=== PATIENT | female | born 1955 | race American Indian/Alaskan Native ===

== ENCOUNTER 2019-02-20 07:45 | Inpatient (IN) | payer MEDICARE, OTHER ==
[2019-02-20] MEDS ORDERED: Ondansetron 4 MG/2 ML SDV IVPUSH ONE (08:18)
[2019-02-20] MEDS ORDERED: Sodium Chloride 0.9% 10 ML Syringe FLUSH PRN (08:18)
[2019-02-20] MEDS ORDERED: HYDROmorphone 0.5 MG/0.5 ML Syringe IVPUSH ONE (08:19)
--- NOTE | 2019-02-20 09:40 | CR ---
Chest: Portable view of the chest was obtained. Comparison: No prior chest imaging. Heart size and mediastinum are within normal limits for portable technique. Lungs are clear with no acute parenchymal change. Bony structures are grossly intact. Impression: 1. Nothing acute is appreciated on portable chest x-ray. Diagnostic code #1
--- NOTE | 2019-02-20 10:07 | EDM.PDOC ---
ED HPI GENERAL MEDICAL PROBLEM - General Chief Complaint: Abdominal Pain Stated Complaint: UPPER ABDOMINAL PAIN/WEAKNESS Time Seen by Provider: 02/20/19 08:14 Source of Information: Reports: Patient History Limitations: Reports: No Limitations - History of Present Illness INITIAL COMMENTS - FREE TEXT/NARRATIVE: The patient presents for nausea, chest and epigastric pain and generalized weakness. This all started this morning. She ate beef stew last night and she was feeling fine for bed. She has a history of pancreatitis. She has no shortness of breath. She has no fever or chills. She did not vomit. She has no diarrhea or dysuria. She still has her gallbladder and appendix. Onset: Gradual Duration: Hour(s): Location: Reports: Chest, Abdomen Quality: Reports: Sharp Severity: Moderate Improves with: Reports: None Worsens with: Reports: None Associated Symptoms: Reports: Chest Pain, Nausea/Vomiting, Weakness. Denies: Cough, Fever/Chills, Headaches, Shortness of Breath Abdomen Pain Score (Numeric/FACES): 2 - Related Data Allergies Allergy/AdvReac Type Severity Reaction Status Date / Time No Known Allergies Allergy Verified 02/20/19 08:10 Home Meds: Home Meds Cephalexin [Keflex] 500 mg PO QID 02/20/19 [History] Cholecalciferol (Vitamin D3) [Vitamin D3] 0 unit PO DAILY 02/20/19 [History] Gabapentin [Neurontin] 600 mg PO TID 02/20/19 [History] Htn Med 0 mg PO DAILY 02/20/19 [History] Insulin 70/30 85 unit SQ ACDINNER 02/20/19 [History] Insulin 70/30 105 unit SQ ACBREAKFAST 02/20/19 [History] Magnesium Oxide [Magnesium] 0 mg PO DAILY 02/20/19 [History] Kiefer-3 Acid Ethyl Esters [Lovaza] 1,000 mg PO BID 02/20/19 [History] Terbinafine [LamISIL] 250 mg PO DAILY 02/20/19 [History] predniSONE [Prednisone] 30 mg PO DAILY 02/20/19 [History] Past Medical History HEENT History: Reports: Cataract, Impaired Vision, Other (See Below) Other HEENT History: 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 Cardiovascular History: Reports: High Cholesterol, Hypertension Gastrointestinal History: Reports: Other (See Below) Other Gastrointestinal History: pancreatitis. 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 Denies: Fever, Chills HEENT: Reports: No Symptoms Respiratory: Reports: No Symptoms Cardiovascular: Reports: Chest Pain Endocrine: Reports: No Symptoms GI/Abdominal: Reports: Abdominal Pain, Nausea. Denies: Diarrhea, Vomiting : Reports: No Symptoms Musculoskeletal: Reports: No Symptoms Skin: Reports: No Symptoms Neurological: Reports: Weakness (Generalized). Denies: Headache ED EXAM, GI/ABD - Physical Exam Exam: See Below Exam Limited By: No Limitations General Appearance: Alert, No Apparent Distress Ears: Normal External Exam Nose: Normal Inspection Head: Atraumatic, Normocephalic Neck: Normal Inspection Respiratory/Chest: No Respiratory Distress, Lungs Clear, Normal Breath Sounds Cardiovascular: Regular Rate, Rhythm, No Edema, No Murmur GI/Abdominal Exam: Soft, No Organomegaly, No Mass, Tender (Moderate epigastric and RUQ abdominal pain) Back Exam: Normal Inspection Extremities: Normal Inspection Neurological: Alert, Oriented, No Motor/Sensory Deficits EKG INTERPRETATION EKG Date: 02/20/19 Time: 07:57 Rhythm: NSR Rate (Beats/Min): 83 Course - Vital Signs Last Recorded V/S: Last Vital Signs Temp 97.2 F 02/20/19 07:50 Pulse 88 02/20/19 09:32 Resp 18 02/20/19 09:32 BP 154/78 H 02/20/19 09:32 Pulse Ox 99 02/20/19 09:32 - Orders/Labs/Meds Orders: Active Orders 24 hr Category Date Time Status Cardiac Monitoring [RC] . DIRECTED Care 02/20/19 08:18 Active EKG Documentation Completion [RC] STAT Care 02/20/19 08:19 Active Peripheral IV Care [RC] . DIRECTED Care 02/20/19 08:19 Active Abdomen Ltd [US] Stat Exams 02/20/19 08:18 Taken UA W/MICROSCOPIC [URIN] Stat Lab 02/20/19 08:18 Ordered Potassium Chloride [KCl 10 MEQ in Water 100 ML] 10 meq Med 02/20/19 10:16 Active Premix Bag 1 bag IV ONETIME Sodium Chloride 0.9% [Saline Flush] Med 02/20/19 08:18 Active 10 ml FLUSH ASDIRECTED PRN ED Antiemetic Medication Reflex [OM.PC] Stat Oth 02/20/19 08:18 Ordered Peripheral IV Insertion Adult [OM.PC] Stat Oth 02/20/19 08:18 Ordered Medication Orders Potassium Chloride 10 meq/ (Premix) 100 mls @ 100 mls/hr IV ONETIME ONE Stop: 02/20/19 11:15 Sodium Chloride (Saline Flush) 10 ml FLUSH ASDIRECTED PRN PRN Reason: Keep Vein Open Last Admin: 02/20/19 08:05 Dose: 10 ml Labs: Laboratory Tests 02/20/19 02/20/19 Range/Units 08:05 08:05 WBC 6.70 (3.98-10.04) K/mm3 RBC 3.60 L (3.98-5.22) M/mm3 Hgb 16.0 H (11.2-15.7) gm/dl Hct 35.0 (34.1-44.9) % MCV 97.2 H (79.4-94.8) fl MCH 44.4 H (25.6-32.2) pg MCHC 45.7 H (32.2-35.5) g/dl RDW Std Deviation 49.5 H (36.4-46.3) fL Plt Count 229 (182-369) K/mm3 MPV 10.6 (9.4-12.3) fl Neut % (Auto) 54.0 (34.0-71.1) % Lymph % (Auto) 10.5 L (19.3-51.7) % [place] % (Auto) 33.9 H (4.7-12.5) % Eos % (Auto) 1.2 (0.7-5.8) Baso % (Auto) 0.4 (0.1-1.2) % Neut # (Auto) 3.60 (1.56-6.13) K/mm3 Lymph # (Auto) 0.70 L (1.18-3.74) K/mm3 [place] # (Auto) 2.26 H (0.24-0.36) K/mm3 Eos # (Auto) 0.08 (0.04-0.36) K/mm3 Baso # (Auto) 0.03 (0.01-0.08) K/mm3 Manual Slide Review Abnormal smear Sodium 123 L (136-145) mEq/L Potassium 2.7 L (3.5-5.1) mEq/L Chloride 91 L (98-107) mEq/L Carbon Dioxide 24 (21-32) mEq/L Anion Gap 10.7 (5-15) BUN TNP Creatinine TNP Estimated GFR (MDRD) TNP BUN/Creatinine Ratio TNP Glucose 439 H (80-115) mg/dL Calcium TNP Total Bilirubin TNP AST TNP ALT TNP Alkaline Phosphatase TNP Troponin I < 0.017 (0.00-0.056) ng/mL Total Protein TNP Albumin TNP Globulin TNP Albumin/Globulin Ratio TNP Lipase 5560 H (73-393) U/L Ethyl Alcohol TNP Meds: Medications Generic Name Dose Route Start Last Admin Trade Name Freq PRN Reason Stop Dose Admin Potassium Chloride 10 meq/ 100 mls @ 100 mls/hr 02/20/19 10:16 Premix IV 02/20/19 11:15 ONETIME ONE Sodium Chloride 10 ml 02/20/19 08:18 02/20/19 08:05 Saline Flush FLUSH 10 ml ASDIRECTED PRN Administration Keep Vein Open Discontinued Medications Generic Name Dose Route Start Last Admin Trade Name Freq PRN Reason Stop Dose Admin Hydromorphone HCl 0.5 mg 02/20/19 08:19 02/20/19 08:42 Dilaudid IVPUSH 02/20/19 08:20 0.5 mg ONETIME ONE Administration Ondansetron HCl 4 mg 02/20/19 08:18 02/20/19 08:40 Zofran IVPUSH 02/20/19 08:19 4 mg ONETIME ONE Administration - Re-Assessments/Exams Free Text/Narrative Re-Assessment/Exam: 02/20/19 10:02 I ordered an IV saline lock, dilaudid 0.5mg IV, zofran 4mg IV, labs, EKG, CXR and an US of her gallbladder. Her WBC and platelets were normal Her Hgb was elevated at 16. Her Na is low at 123. Her K is low at 27. I have ordered IV K. Her glucose is 439. Her troponin is negative. Her lipase is 5560. I am waiting for her US. 02/20/19 10:23 Her EKG shows a NSR with no acute changes. Her CXR looks good. Her US shows small gallbladder polyps. Largest polyp measures 4.6mm. Follow-up recommended in 6 months to make sure findings are stable. Echogenic liver most likely due to fatty infiltration. No additional abnormality is appreciated on right upper quadrant abdominal US exam. I have ordered her fluids and the K. I feel she needs to be admitted. I called Dr Gomez and he agreed to the admission. Departure - Departure Time of Disposition: 10:25 Disposition: Admitted As Inpatient 68 Condition: Poor Clinical Impression: Hypokalemia, Hyponatremia Pancreatitis Qualifiers: Chronicity: acute Pancreatitis type: other Acute pancreatitis complication: no infection or necrosis Qualified Code(s): K85.80 - Other acute pancreatitis without necrosis or infection - Discharge Information Referrals: PCP,Not In Area [Primary Care Provider] - Forms: ED Department Discharge - My Orders Last 24 Hours: My Active Orders 02/20/19 08:18 Cardiac Monitoring [RC] . DIRECTED Abdomen Ltd [US] Stat UA W/MICROSCOPIC [URIN] Stat Sodium Chloride 0.9% [Saline Flush] 10 ml FLUSH ASDIRECTED PRN ED Antiemetic Medication Reflex [OM.PC] Stat Peripheral IV Insertion Adult [OM.PC] Stat 02/20/19 08:19 EKG Documentation Completion [RC] STAT Peripheral IV Care [RC] . DIRECTED 02/20/19 10:16 Potassium Chloride [KCl 10 MEQ in Water 100 ML] 10 meq Premix Bag 1 bag IV ONETIME - Assessment/Plan Last 24 Hours: My Active Orders 02/20/19 08:18 Cardiac Monitoring [RC] . DIRECTED Abdomen Ltd [US] Stat UA W/MICROSCOPIC [URIN] Stat Sodium Chloride 0.9% [Saline Flush] 10 ml FLUSH ASDIRECTED PRN ED Antiemetic Medication Reflex [OM.PC] Stat Peripheral IV Insertion Adult [OM.PC] Stat 02/20/19 08:19 EKG Documentation Completion [RC] STAT Peripheral IV Care [RC] . DIRECTED 02/20/19 10:16 Potassium Chloride [KCl 10 MEQ in Water 100 ML] 10 meq Premix Bag 1 bag IV ONETIME
[2019-02-20] MEDS ORDERED: Potassium Chloride 10 MEQ in Premix Bag 1 BAG IV ONE (10:16)
[2019-02-20] MEDS ORDERED: Sodium Chloride 0.9% 500 ML IV ONE (10:22)
--- NOTE | 2019-02-20 10:32 | US ---
Limited abdominal ultrasound: Multiple real-time images of the upper right abdomen were obtained. Pancreas shows no discrete abnormality. Liver is echogenic most likely due to fatty infiltration. No focal abnormality is seen within the liver. Gallbladder contains no shadowing gallstones. Small polyps are seen within the gallbladder. Largest polyp measures 4.6 mm and second largest measures 4.1 mm. No biliary duct dilatation or gallbladder wall thickening is seen. Right kidney shows no hydronephrosis or mass. Right kidney length is 10.8 cm. Inferior vena cava is patent. Portal vein shows normal hepatopedal flow. Impression: 1. Small gallbladder polyps. Largest polyp measures 4.6 mm. Follow-up recommended in 6 months to make sure findings are stable. 2. Echogenic liver most likely due to fatty infiltration. 3. No additional abnormality is appreciated on right upper quadrant abdominal ultrasound exam. Diagnostic code #3
[2019-02-20] MEDS ORDERED: Pneumococcal Polyvalent-23 Vaccine 0.5 ML SDV IM ONE (12:21)
[2019-02-20] MEDS ORDERED: Lactated Ringers 1,000 ML IV ONE (12:26)
[2019-02-20] MEDS ORDERED: FLU Vacc QS2019-20(6MOS+)/PF 60 MCG/0.5 ML SYRINGE IM ONE (12:30)
[2019-02-20] MEDS: Lactated Ringers 1,000 ML IV SCH ×2 (12:39→18:30)
[2019-02-20] MEDS: Potassium Chloride 10 MEQ in Premix Bag 1 BAG IV SCH ×4 (12:40→16:09)
[2019-02-20] MEDS: HYDROmorphone 0.5 MG/0.5 ML Syringe IVPUSH PRN ×2 (12:41→17:25)
[2019-02-20] MEDS ORDERED: Insulin Regular, Human 100 Units/ML 3 ML Vial SUBCUT ONE (13:47)
[2019-02-20] MEDS ORDERED: Insulin Lispro 100 Units/ML 3 ML Vial SUBCUT ONE ×2 (13:59→23:30)
[2019-02-20] MEDS ORDERED: Magnesium Sulfate/Water 4 GM in Premix Bag 1 BAG IV ONE (14:00)
[2019-02-20] MEDS: Insulin Lispro 100 Units/ML 3 ML Vial SUBCUT SCH ×3 (14:05→21:57)
[2019-02-20] MEDS ORDERED: Ondansetron 4 MG/2 ML SDV IVPUSH PRN (17:19)
--- NOTE | 2019-02-20 17:20 | PCM.HP.2 ---
H&P History of Present Illness - General Date of Service: 02/20/19 Admit Problem/Dx: Admission Diagnosis/Problem Admission Diagnosis/Problem Pancreatitis - History of Present Illness Initial Comments - Free Text/Narative: 63-year-old female, poor historian, insulin-dependent diabetes with history of 2 prior episodes of pancreatitis and severe hypertriglyceridemia presents to the emergency room with nausea, chest pain, epigastric pain, and generalized weakness. She states that it all started this morning. Last night she ate beef stew and fried bread. Patient denied any fever, chills, recent weight loss. She had cut her thumb 2 weeks ago was started on Keflex yesterday. Patient also is on terbinafine since October for onychomycosis. It appears patient's first episode of pancreatitis followed starting terbinafine. [place] and states that 2 times last year she was flown out to [place], [place] for plasmapheresis secondary to triglycerides in the . At that time patient had symptoms of nausea and vomiting but she does not think she was diagnosed with pancreatitis. patient denies any drinking of alcohol. 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 Emergent to see department labs were excessively lipemic therefore making many results unattainable or unpredictable.: CBC, RBC, hemoglobin and hematocrit results were obtained by diluting the specimen. WBC 6.7, hemoglobin 16.0, platelet 229, sodium 123, potassium 2.6, chloride 91, carbon dioxide 24, glucose 439, troponin I less than 0.017, lipase 5560. The remainder of the CMP results were unobtainable because of lipidemia. No renal function or liver function was obtained. Repeat when she got to the floor after 500 mL saline bolus and 10 mEq KCl in the emergency room showed: Sodium 128, potassium 2.6, anion gap of 12.6, glucose 376, magnesium 1.4, triglycerides 7734. Urine WBC 5-10 with 0-5 epithelial cells. Urine bacteria few. Chest x-ray showed no acute changes. Limited abdominal ultrasound Impression: 1. Small gallbladder polyps. The largest polyp measures 4.6 mm. Follow-up recommended in 6 months to make sure findings are stable. 2. Echogenic liver most likely due to fatty infiltration. 3. No additional abnormality is appreciated on the right upper quadrant abdominal ultrasound exam. Abdomen Pain Score (Numeric/FACES): 2 - Related Data Allergies/Adverse Reactions: Allergies Allergy/AdvReac Type Severity Reaction Status Date / Time No Known Allergies Allergy Verified 02/20/19 08:10 Home Medications: Home Meds Cephalexin [Keflex] 500 mg PO QID 02/20/19 [History] Cholecalciferol (Vitamin D3) [Vitamin D3] 0 unit PO DAILY 02/20/19 [History] Gabapentin [Neurontin] 600 mg PO TID 02/20/19 [History] Htn Med 0 mg PO DAILY 02/20/19 [History] Insulin 70/30 85 unit SQ ACDINNER 02/20/19 [History] Insulin 70/30 105 unit SQ ACBREAKFAST 02/20/19 [History] Magnesium Oxide [Magnesium] 0 mg PO DAILY 02/20/19 [History] Kulm-3 Acid Ethyl Esters [Lovaza] 1,000 mg PO BID 02/20/19 [History] Terbinafine [LamISIL] 250 mg PO DAILY 02/20/19 [History] predniSONE [Prednisone] 30 mg PO DAILY 02/20/19 [History] Past Medical History HEENT History: Reports: Cataract, Impaired Vision, Other (See Below) Other HEENT History: 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 Cardiovascular History: Reports: High Cholesterol, Hypertension Gastrointestinal History: Reports: Other (See Below) Other Gastrointestinal History: pancreatitis. 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 Exam - Exam Exam: See Below - Vital Signs Vital Signs: Last Vital Signs Temp 98.4 F 02/20/19 16:00 Pulse 88 02/20/19 09:32 Resp 15 02/20/19 16:00 BP 151/72 H 02/20/19 16:00 Pulse Ox 93 L 02/20/19 16:00 Weight: 153 lb 1.6 oz - Exam Quality Assessment: No: Supplemental Oxygen General: Alert, Oriented, 4 HEENT: Conjunctiva Clear, Hearing Intact, Mucosa Moist & [place] Neck: Supple, Trachea Midline, 2 Lungs: Clear to Auscultation, Normal Respiratory Effort Cardiovascular: Regular Rate, Regular Rhythm GI/Abdominal Exam: Normal Bowel Sounds, Soft, Non-Tender, No Organomegaly, No Distention, No Abnormal Bruit, No Mass Back Exam: Normal Inspection, Full Range of Motion, NT Extremities: Normal Inspection, Normal Range of Motion, Non-Tender, No Pedal Edema, Normal Capillary Refill Skin: Warm, Dry, Intact Neurological: Cranial Nerves Intact Neuro Extensive - Mental Status: Alert, Oriented x3, Normal Mood/Affect, Normal Cognition Neuro Extensive - Motor, Sensory, Reflexes: CN II-XII Intact Psychiatric: Alert, Normal Affect, Normal Mood - Patient Data Lab Results Last 24 hrs: Laboratory Results - last 24 hr 02/20/19 02/20/19 02/20/19 Range/Units 08:05 08:05 12:26 WBC 6.70 (3.98-10.04) K/mm3 RBC 3.60 L (3.98-5.22) M/mm3 Hgb 16.0 H (11.2-15.7) gm/dl Hct 35.0 (34.1-44.9) % MCV 97.2 H (79.4-94.8) fl MCH 44.4 H (25.6-32.2) pg MCHC 45.7 H (32.2-35.5) g/dl RDW Std Deviation 49.5 H (36.4-46.3) fL Plt Count 229 (182-369) K/mm3 MPV 10.6 (9.4-12.3) fl Neut % (Auto) 54.0 (34.0-71.1) % Lymph % (Auto) 10.5 L (19.3-51.7) % [place] % (Auto) 33.9 H (4.7-12.5) % Eos % (Auto) 1.2 (0.7-5.8) Baso % (Auto) 0.4 (0.1-1.2) % Neut # (Auto) 3.60 (1.56-6.13) K/mm3 Lymph # (Auto) 0.70 L (1.18-3.74) K/mm3 [place] # (Auto) 2.26 H (0.24-0.36) K/mm3 Eos # (Auto) 0.08 (0.04-0.36) K/mm3 Baso # (Auto) 0.03 (0.01-0.08) K/mm3 Manual Slide Review Abnormal smear Sodium 123 L 128 L (136-145) mEq/L Potassium 2.7 L 2.6 L (3.5-5.1) mEq/L Chloride 91 L 94 L (98-107) mEq/L Carbon Dioxide 24 24 (21-32) mEq/L Anion Gap 10.7 12.6 (5-15) BUN TNP TNP Creatinine TNP TNP Est Cr Clr Drug Dosing TNP Estimated GFR (MDRD) TNP TNP BUN/Creatinine Ratio TNP TNP Glucose 439 H 376 H (80-115) mg/dL POC Glucose (80-115) mg/dL Calcium TNP TNP Magnesium 1.4 L (1.8-2.4) mg/dl Total Bilirubin TNP TNP AST TNP TNP ALT TNP TNP Alkaline Phosphatase TNP TNP Troponin I < 0.017 (0.00-0.056) ng/mL Total Protein TNP TNP Albumin TNP TNP Globulin TNP TNP Albumin/Globulin Ratio TNP TNP Triglycerides 7334 H (<150) mg/dL Cholesterol TNP LDL Cholesterol Direct TNP HDL Cholesterol TNP Lipase 5560 H (73-393) U/L Urine Color (Yellow) Urine Appearance (Clear) Urine pH (5.0-8.0) Ur Specific [place] (1.005-1.030) Urine Protein (Negative) Urine Glucose (UA) (Negative) Urine Ketones (Negative) Urine Occult Blood (Negative) Urine Nitrite (Negative) Urine Bilirubin (Negative) Urine Urobilinogen (0.2-1.0) Ur Leukocyte Esterase (Negative) Urine RBC (0-5) /hpf Urine WBC (0-5) /hpf Ur Squamous Epith Cells (0-5) /hpf Urine Bacteria (FEW) /hpf Urine Mucus (FEW) /hpf Ethyl Alcohol TNP 02/20/19 02/20/19 Range/Units 14:30 16:47 WBC (3.98-10.04) K/mm3 RBC (3.98-5.22) M/mm3 Hgb (11.2-15.7) gm/dl Hct (34.1-44.9) % MCV (79.4-94.8) fl MCH (25.6-32.2) pg MCHC (32.2-35.5) g/dl RDW Std Deviation (36.4-46.3) fL Plt Count (182-369) K/mm3 MPV (9.4-12.3) fl Neut % (Auto) (34.0-71.1) % Lymph % (Auto) (19.3-51.7) % [place] % (Auto) (4.7-12.5) % Eos % (Auto) (0.7-5.8) Baso % (Auto) (0.1-1.2) % Neut # (Auto) (1.56-6.13) K/mm3 Lymph # (Auto) (1.18-3.74) K/mm3 [place] # (Auto) (0.24-0.36) K/mm3 Eos # (Auto) (0.04-0.36) K/mm3 Baso # (Auto) (0.01-0.08) K/mm3 Manual Slide Review Sodium (136-145) mEq/L Potassium (3.5-5.1) mEq/L Chloride (98-107) mEq/L Carbon Dioxide (21-32) mEq/L Anion Gap (5-15) BUN Creatinine Est Cr Clr Drug Dosing Estimated GFR (MDRD) BUN/Creatinine Ratio Glucose (80-115) mg/dL POC Glucose 162 H (80-115) mg/dL Calcium Magnesium (1.8-2.4) mg/dl Total Bilirubin AST ALT Alkaline Phosphatase Troponin I (0.00-0.056) ng/mL Total Protein Albumin Globulin Albumin/Globulin Ratio Triglycerides (<150) mg/dL Cholesterol LDL Cholesterol Direct HDL Cholesterol Lipase (73-393) U/L Urine Color Yellow (Yellow) Urine Appearance Clear (Clear) Urine pH 7.0 (5.0-8.0) Ur Specific [place] 1.025 (1.005-1.030) Urine Protein 2+ H (Negative) Urine Glucose (UA) 2+ H (Negative) Urine Ketones Negative (Negative) Urine Occult Blood Negative (Negative) Urine Nitrite Negative (Negative) Urine Bilirubin Negative (Negative) Urine Urobilinogen 0.2 (0.2-1.0) Ur Leukocyte Esterase Trace H (Negative) Urine RBC 0-5 (0-5) /hpf Urine WBC 5-10 H (0-5) /hpf Ur Squamous Epith Cells 0-5 (0-5) /hpf Urine Bacteria Few (FEW) /hpf Urine Mucus Few (FEW) /hpf Ethyl Alcohol Result Diagrams: 02/20/19 08:05 02/20/19 12:26 Problem List Initiated/Reviewed/Updated: Yes Orders Last 24hrs: Active Orders 24 hr Category Date Time Status Patient Status [ADT] Routine ADT 02/20/19 11:35 Active Activity as Tolerated [RC] .Routine Care 02/20/19 16:39 Ordered Antiembolic Devices [RC] PER UNIT ROUTINE Care 02/20/19 16:37 Ordered Blood Glucose Check, Bedside [RC] QIDACANDBED Care 02/20/19 12:20 Active Cardiac Monitoring [RC] . DIRECTED Care 02/20/19 08:18 Active Influenza Vaccine Charge [RC] .DISCHARGE Care 02/20/19 12:21 Active Clear Liquid Diet [DIET] Diet 02/20/19 Lunch Active CBC WITH AUTO DIFF [HEME] AM Lab 02/21/19 05:11 Ordered CBC WITH AUTO DIFF [HEME] AM Lab 02/22/19 05:11 Ordered CBC WITH AUTO DIFF [HEME] AM Lab 02/23/19 05:11 Ordered CMP [COMPREHENSIVE METABOLIC PN,CMP] [CHEM] AM Lab 02/21/19 05:11 Ordered CMP [COMPREHENSIVE METABOLIC PN,CMP] [CHEM] AM Lab 02/22/19 05:11 Ordered CMP [COMPREHENSIVE METABOLIC PN,CMP] [CHEM] AM Lab 02/23/19 05:11 Ordered COMPREHENSIVE METABOLIC PN,CMP [CHEM] Stat Lab 02/20/19 16:40 Ordered MAGNESIUM [CHEM] AM Lab 02/21/19 05:11 Ordered MAGNESIUM [CHEM] AM Lab 02/22/19 05:11 Ordered MAGNESIUM [CHEM] AM Lab 02/23/19 05:11 Ordered Gabapentin [Neurontin] Med 02/20/19 21:00 Ordered 600 mg PO TID HYDROmorphone [Dilaudid] Med 02/20/19 12:28 Active 0.5 mg IVPUSH Q1H PRN Insulin Lispro [HumaLOG] Med 02/20/19 17:00 Active See Protocol SUBCUT QIDACANDBED Lactated Ringers [Ringers, Lactated] 1,000 ml Med 02/20/19 12:30 Active IV ASDIRECTED Magnesium Sulfate/Water [Magnesium Sulfate in Water Med 02/20/19 14:00 Active Premix] 4 gm Premix Bag 1 bag IV ONETIME Sodium Chloride 0.9% [Saline Flush] Med 02/20/19 08:18 Active 10 ml FLUSH ASDIRECTED PRN cephALEXin [Keflex] Med 02/20/19 17:00 Ordered 500 mg PO QID predniSONE Med 02/21/19 09:00 Ordered 30 mg PO DAILY ED Antiemetic Medication Reflex [OM.PC] Stat Oth 02/20/19 08:18 Ordered Peripheral IV Insertion Adult [OM.PC] Stat Oth 02/20/19 08:18 Ordered SCD [Sequential Compression Device] [OM.PC] Routine Oth 02/20/19 16:37 Ordered Code Status [Resuscitation Status] Routine Resus Stat 02/20/19 16:36 Ordered Medication Orders Cephalexin (Keflex) 500 mg PO QID [facility] Hydromorphone HCl (Dilaudid) 0.5 mg IVPUSH Q1H PRN PRN Reason: Pain Last Admin: 02/20/19 12:41 Dose: 0.5 mg Lactated Ringer's (Ringers, Lactated) 1,000 mls @ 150 mls/hr IV ASDIRECTED SILVINO Last Admin: 02/20/19 12:39 Dose: 999 mls/hr Magnesium Sulfate 4 gm/ Premix 50 mls @ 12.5 mls/hr IV ONETIME ONE Stop: 02/20/19 17:59 Last Admin: 02/20/19 13:55 Dose: 12.5 mls/hr Insulin Human Lispro (Humalog) 0 unit SUBCUT QIDACANDBED [facility]; Protocol Last Admin: 02/20/19 16:51 Dose: 2 units Admin: 02/20/19 14:05 Dose: 10 units Sodium Chloride (Saline Flush) 10 ml FLUSH ASDIRECTED PRN PRN Reason: Keep Vein Open Last Admin: 02/20/19 08:05 Dose: 10 ml Assessment/Plan Comment:: Assessment * 63-year-old female with insulin-dependent diabetes, severe hypertriglyceridemia, and recurrent pancreatitis. * Acute pancreatitis * Likely multifactorial to include severe hypertriglyceridemia, possible medication effect from terbinafine * Lipase 5500 * Triglycerides 7739 * Limited abdominal ultrasound * Impression: * 1. Small gallbladder polyps. The largest polyp measures 4.6 mm. Follow-up recommended in 6 months to make sure findings are stable. * 2. Echogenic liver most likely due to fatty infiltration. * 3. No additional abnormality is appreciated on the right upper quadrant abdominal ultrasound exam. * Severe hypertriglyceridemia with history of plasmapheresis * Hyponatremia * Hypokalemia * Hypomagnesemia * Cellulitis left thumb * on Keflex 500 mg 4 times a day * history of polymyositis receiving IVIG every 2 weeks. * On prednisone 30 mg daily in addition to IVIG * onychomycosisresolved on terbinafine Plan * Admit to ICU * Aggressive IV hydration with lactated Ringer's * repeat CMP, magnesium * Pain management with Dilaudid * Advance diet as tolerated based on pain and nausea * Get old records and restart home meds * Sliding scale insulin while nothing by mouth and on clear liquids * Stop terbinafine * Continue Keflex and prednisone * Replete potassium and magnesium and recheck. * VTE prophylaxis with SCDs until renal function nd liver function is available * CODE STATUS: Full code - Mortality Measure Prognosis:: Poor
[2019-02-20] MEDS: Cephalexin 500 MG Cap PO SCH ×2 (18:04→21:52)
[2019-02-20] MEDS ORDERED: Gabapentin 300 MG Cap PO SCH (21:00)
[2019-02-20] MEDS ORDERED: Sodium Chloride 0.9% 1,000 ML IV SCH (21:45)
--- NOTE | 2019-02-20 23:59 | PCM.DCSUM1 ---
Discharge Summary - Hospital Course HPI Initial Comments: 63-year-old female, poor historian, insulin-dependent diabetes with history of 2 prior episodes of pancreatitis and severe hypertriglyceridemia presents to the emergency room with nausea, chest pain, epigastric pain, and generalized weakness. She states that it all started this morning. Last night she ate beef stew and fried bread. Patient denied any fever, chills, recent weight loss. She had cut her thumb 2 weeks ago was started on Keflex yesterday. Patient also is on terbinafine since October for onychomycosis. It appears patient's first episode of pancreatitis followed starting terbinafine. [place] and states that 2 times last year she was flown out to [place], [place] for plasmapheresis secondary to triglycerides in the . At that time patient had symptoms of nausea and vomiting but she does not think she was diagnosed with pancreatitis. patient denies any drinking of alcohol. 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 Emergent to see department labs were excessively lipemic therefore making many results unattainable or unpredictable.: CBC, RBC, hemoglobin and hematocrit results were obtained by diluting the specimen. WBC 6.7, hemoglobin 16.0, platelet 229, sodium 123, potassium 2.6, chloride 91, carbon dioxide 24, glucose 439, troponin I less than 0.017, lipase 5560. The remainder of the CMP results were unobtainable because of lipidemia. No renal function or liver function was obtained. Repeat when she got to the floor after 500 mL saline bolus and 10 mEq KCl in the emergency room showed: Sodium 128, potassium 2.6, anion gap of 12.6, glucose 376, magnesium 1.4, triglycerides 7734. Urine WBC 5-10 with 0-5 epithelial cells. Urine bacteria few. Chest x-ray showed no acute changes. Limited abdominal ultrasound Impression: 1. Small gallbladder polyps. The largest polyp measures 4.6 mm. Follow-up recommended in 6 months to make sure findings are stable. 2. Echogenic liver most likely due to fatty infiltration. 3. No additional abnormality is appreciated on the right upper quadrant abdominal ultrasound exam. Diagnosis: Stroke: No - Discharge Data Discharge Date: 02/20/19 Discharge Disposition: DC/Tfer to Acute Hospital 02 Condition: Good - Referral to Home Health Primary Care Physician: PCP Not In Area - Patient Summary/Data Hospital Course: During hospitalization patient was given approximately 3 L total of crystalloid. She was given pain medication to include Dilaudid. Patient's triglyceride level was 7339 making it impossible for renal function or liver function to be obtained. Also concern for other lab values to be in error. Patient's sodium did decrease from a corrected sodium of 131 to a corrected sodium of 126. She was maintained on a high dose sliding scale for her hyperglycemia. After approximately 12 hours and patient became lethargic and had a change of mental status and was felt that she would benefit from a higher level of care. Dr. Craig agreed to transfer of care to [facility] in [place]. - Patient Instructions Diet: NPO - Discharge Plan *PRESCRIPTION DRUG MONITORING PROGRAM REVIEWED*: No Home Medications: Home Meds Calcium Carbonate/Vitamin D3 [Calcium Carb 500 MG] 1,250 mg PO DAILY 02/20/19 [ History] Cephalexin [Keflex] 500 mg PO QID 02/20/19 [History] Clotrimazole 1 dose TOP DAILY 02/20/19 [History] Cyanocobalamin (Vitamin B12) [Vitamin B12] 500 mcg PO DAILY 02/20/19 [History] Dulaglutide [Trulicity] 1.5 mg SQ WEEKLY 02/20/19 [History] Ergocalciferol (Vitamin D2) [Ergocalciferol] 50,000 units PO ASDIRECTED [History] Fenofibrate Nanocrystallized [Fenofibrate] 48 mg PO DAILY 02/20/19 [History] Folic Acid 1 mg PO DAILY 02/20/19 [History] Gabapentin [Neurontin] 600 mg PO TID 02/20/19 [History] Immune Globulin,Gamma (IgG) [Privigen 10%] 80 gm IV ASDIRECTED 02/20/19 [History ] Insulin 70/30 85 unit SQ ACDINNER 02/20/19 [History] Insulin 70/30 105 unit SQ ACBREAKFAST 02/20/19 [History] Magnesium Oxide [Magnesium] 800 mg PO DAILY 02/20/19 [History] [place]-3 Acid Ethyl Esters [Lovaza] 1 gm PO BID 02/20/19 [History] Potassium Chloride 10 meq PO DAILY 02/20/19 [History] Pravastatin [Pravachol] 10 mg PO DAILY 02/20/19 [History] Propylene Glycol/Peg 400 [Lubricating Eye Drop] 1 drop EYEBOTH Q2H PRN 02/20/19 [History] Terbinafine [LamISIL AT] 1 dose TOP DAILY 02/20/19 [History] amLODIPine [Norvasc] 10 mg PO DAILY 02/20/19 [History] azaTHIOprine [Azathioprine] 200 mg PO DAILY 02/20/19 [History] predniSONE [Prednisone] 30 mg PO DAILY 02/20/19 [History] Oxygen Therapy Mode: Nasal Cannula Oxygen Flow Rate (L/min): 3.5 Forms: ED Department Discharge Referrals: PCP,Not In Area [Primary Care Provider] - - Discharge Summary/Plan Comment DC Time >30 min.: Yes Discharge Summary/Plan Comment: Transferred to [facility] in [place] accepting physician Dr. Craig. - General Info Date of Service: 02/20/19 Admission Dx/Problem (Free Text: Admission Diagnosis/Problem Admission Diagnosis/Problem Pancreatitis - Patient Data Vitals - Most Recent: Last Vital Signs Temp 98.4 F 02/20/19 20:00 Pulse 88 02/20/19 09:32 Resp 18 02/20/19 20:00 BP 162/78 H 02/20/19 20:00 Pulse Ox 94 L 02/20/19 21:23 Weight - Most Recent: 153 lb 1.6 oz I&O - Last 24 hours: Intake & Output 02/20/19 02/20/19 02/21/19 14:59 22:59 06:59 Intake Total 2798 Output Total 2000 Balance 798 Lab Results - Last 24 hrs: Laboratory Results - last 24 hr 02/20/19 02/20/19 02/20/19 Range/Units 08:05 08:05 08:09 WBC 6.70 (3.98-10.04) K/mm3 RBC 3.60 L (3.98-5.22) M/mm3 Hgb 16.0 H (11.2-15.7) gm/dl Hct 35.0 (34.1-44.9) % MCV 97.2 H (79.4-94.8) fl MCH 44.4 H (25.6-32.2) pg MCHC 45.7 H (32.2-35.5) g/dl RDW Std Deviation 49.5 H (36.4-46.3) fL Plt Count 229 (182-369) K/mm3 MPV 10.6 (9.4-12.3) fl Neut % (Auto) 54.0 (34.0-71.1) % Lymph % (Auto) 10.5 L (19.3-51.7) % Dickens % (Auto) 33.9 H (4.7-12.5) % Eos % (Auto) 1.2 (0.7-5.8) Baso % (Auto) 0.4 (0.1-1.2) % Neut # (Auto) 3.60 (1.56-6.13) K/mm3 Lymph # (Auto) 0.70 L (1.18-3.74) K/mm3 Dickens # (Auto) 2.26 H (0.24-0.36) K/mm3 Eos # (Auto) 0.08 (0.04-0.36) K/mm3 Baso # (Auto) 0.03 (0.01-0.08) K/mm3 Manual Slide Review Abnormal smear Sodium 123 L (136-145) mEq/L Potassium 2.7 L (3.5-5.1) mEq/L Chloride 91 L (98-107) mEq/L Carbon Dioxide 24 (21-32) mEq/L Anion Gap 10.7 (5-15) BUN TNP Creatinine TNP Est Cr Clr Drug Dosing Estimated GFR (MDRD) TNP BUN/Creatinine Ratio TNP Glucose 439 H (80-115) mg/dL POC Glucose 279 H (80-115) mg/dL Calcium TNP Magnesium (1.8-2.4) mg/dl Total Bilirubin TNP AST TNP ALT TNP Alkaline Phosphatase TNP Troponin I < 0.017 (0.00-0.056) ng/mL Total Protein TNP Albumin TNP Globulin TNP Albumin/Globulin Ratio TNP Triglycerides (<150) mg/dL Cholesterol LDL Cholesterol Direct HDL Cholesterol Lipase 5560 H (73-393) U/L Urine Color (Yellow) Urine Appearance (Clear) Urine pH (5.0-8.0) Ur Specific Diana (1.005-1.030) Urine Protein (Negative) Urine Glucose (UA) (Negative) Urine Ketones (Negative) Urine Occult Blood (Negative) Urine Nitrite (Negative) Urine Bilirubin (Negative) Urine Urobilinogen (0.2-1.0) Ur Leukocyte Esterase (Negative) Urine RBC (0-5) /hpf Urine WBC (0-5) /hpf Ur Squamous Epith Cells (0-5) /hpf Urine Bacteria (FEW) /hpf Urine Mucus (FEW) /hpf Ethyl Alcohol TNP 02/20/19 02/20/19 02/20/19 Range/Units 12:26 14:30 16:47 WBC (3.98-10.04) K/mm3 RBC (3.98-5.22) M/mm3 Hgb (11.2-15.7) gm/dl Hct (34.1-44.9) % MCV (79.4-94.8) fl MCH (25.6-32.2) pg MCHC (32.2-35.5) g/dl RDW Std Deviation (36.4-46.3) fL Plt Count (182-369) K/mm3 MPV (9.4-12.3) fl Neut % (Auto) (34.0-71.1) % Lymph % (Auto) (19.3-51.7) % Dickens % (Auto) (4.7-12.5) % Eos % (Auto) (0.7-5.8) Baso % (Auto) (0.1-1.2) % Neut # (Auto) (1.56-6.13) K/mm3 Lymph # (Auto) (1.18-3.74) K/mm3 Dickens # (Auto) (0.24-0.36) K/mm3 Eos # (Auto) (0.04-0.36) K/mm3 Baso # (Auto) (0.01-0.08) K/mm3 Manual Slide Review Sodium 128 L (136-145) mEq/L Potassium 2.6 L (3.5-5.1) mEq/L Chloride 94 L (98-107) mEq/L Carbon Dioxide 24 (21-32) mEq/L Anion Gap 12.6 (5-15) BUN TNP Creatinine TNP Est Cr Clr Drug Dosing TNP Estimated GFR (MDRD) TNP BUN/Creatinine Ratio TNP Glucose 376 H (80-115) mg/dL POC Glucose 162 H (80-115) mg/dL Calcium TNP Magnesium 1.4 L (1.8-2.4) mg/dl Total Bilirubin TNP AST TNP ALT TNP Alkaline Phosphatase TNP Troponin I (0.00-0.056) ng/mL Total Protein TNP Albumin TNP Globulin TNP Albumin/Globulin Ratio TNP Triglycerides 7334 H (<150) mg/dL Cholesterol TNP LDL Cholesterol Direct TNP HDL Cholesterol TNP Lipase (73-393) U/L Urine Color Yellow (Yellow) Urine Appearance Clear (Clear) Urine pH 7.0 (5.0-8.0) Ur Specific Diana 1.025 (1.005-1.030) Urine Protein 2+ H (Negative) Urine Glucose (UA) 2+ H (Negative) Urine Ketones Negative (Negative) Urine Occult Blood Negative (Negative) Urine Nitrite Negative (Negative) Urine Bilirubin Negative (Negative) Urine Urobilinogen 0.2 (0.2-1.0) Ur Leukocyte Esterase Trace H (Negative) Urine RBC 0-5 (0-5) /hpf Urine WBC 5-10 H (0-5) /hpf Ur Squamous Epith Cells 0-5 (0-5) /hpf Urine Bacteria Few (FEW) /hpf Urine Mucus Few (FEW) /hpf Ethyl Alcohol 02/20/19 02/20/19 02/20/19 Range/Units 17:01 21:48 21:55 WBC (3.98-10.04) K/mm3 RBC (3.98-5.22) M/mm3 Hgb (11.2-15.7) gm/dl Hct (34.1-44.9) % MCV (79.4-94.8) fl MCH (25.6-32.2) pg MCHC (32.2-35.5) g/dl RDW Std Deviation (36.4-46.3) fL Plt Count (182-369) K/mm3 MPV (9.4-12.3) fl Neut % (Auto) (34.0-71.1) % Lymph % (Auto) (19.3-51.7) % Dickens % (Auto) (4.7-12.5) % Eos % (Auto) (0.7-5.8) Baso % (Auto) (0.1-1.2) % Neut # (Auto) (1.56-6.13) K/mm3 Lymph # (Auto) (1.18-3.74) K/mm3 Dickens # (Auto) (0.24-0.36) K/mm3 Eos # (Auto) (0.04-0.36) K/mm3 Baso # (Auto) (0.01-0.08) K/mm3 Manual Slide Review Sodium 124 L 120 L (136-145) mEq/L Potassium 3.6 3.3 L (3.5-5.1) mEq/L Chloride 93 L 90 L (98-107) mEq/L Carbon Dioxide 20 L 19 L (21-32) mEq/L Anion Gap TNP TNP (5-15) BUN TNP TNP Creatinine TNP TNP Est Cr Clr Drug Dosing TNP TNP Estimated GFR (MDRD) TNP TNP BUN/Creatinine Ratio TNP TNP Glucose 338 H 368 H (80-115) mg/dL POC Glucose 219 H (80-115) mg/dL Calcium TNP TNP Magnesium (1.8-2.4) mg/dl Total Bilirubin TNP TNP AST TNP TNP ALT TNP TNP Alkaline Phosphatase TNP TNP Troponin I (0.00-0.056) ng/mL Total Protein TNP TNP Albumin TNP TNP Globulin TNP TNP Albumin/Globulin Ratio TNP TNP Triglycerides (<150) mg/dL Cholesterol LDL Cholesterol Direct HDL Cholesterol Lipase (73-393) U/L Urine Color (Yellow) Urine Appearance (Clear) Urine pH (5.0-8.0) Ur Specific Diana (1.005-1.030) Urine Protein (Negative) Urine Glucose (UA) (Negative) Urine Ketones (Negative) Urine Occult Blood (Negative) Urine Nitrite (Negative) Urine Bilirubin (Negative) Urine Urobilinogen (0.2-1.0) Ur Leukocyte Esterase (Negative) Urine RBC (0-5) /hpf Urine WBC (0-5) /hpf Ur Squamous Epith Cells (0-5) /hpf Urine Bacteria (FEW) /hpf Urine Mucus (FEW) /hpf Ethyl Alcohol 02/20/19 Range/Units 22:55 WBC (3.98-10.04) K/mm3 RBC (3.98-5.22) M/mm3 Hgb (11.2-15.7) gm/dl Hct (34.1-44.9) % MCV (79.4-94.8) fl MCH (25.6-32.2) pg MCHC (32.2-35.5) g/dl RDW Std Deviation (36.4-46.3) fL Plt Count (182-369) K/mm3 MPV (9.4-12.3) fl Neut % (Auto) (34.0-71.1) % Lymph % (Auto) (19.3-51.7) % Dickens % (Auto) (4.7-12.5) % Eos % (Auto) (0.7-5.8) Baso % (Auto) (0.1-1.2) % Neut # (Auto) (1.56-6.13) K/mm3 Lymph # (Auto) (1.18-3.74) K/mm3 Dickens # (Auto) (0.24-0.36) K/mm3 Eos # (Auto) (0.04-0.36) K/mm3 Baso # (Auto) (0.01-0.08) K/mm3 Manual Slide Review Sodium (136-145) mEq/L Potassium (3.5-5.1) mEq/L Chloride (98-107) mEq/L Carbon Dioxide (21-32) mEq/L Anion Gap (5-15) BUN Creatinine Est Cr Clr Drug Dosing Estimated GFR (MDRD) BUN/Creatinine Ratio Glucose (80-115) mg/dL POC Glucose 206 H (80-115) mg/dL Calcium Magnesium (1.8-2.4) mg/dl Total Bilirubin AST ALT Alkaline Phosphatase Troponin I (0.00-0.056) ng/mL Total Protein Albumin Globulin Albumin/Globulin Ratio Triglycerides (<150) mg/dL Cholesterol LDL Cholesterol Direct HDL Cholesterol Lipase (73-393) U/L Urine Color (Yellow) Urine Appearance (Clear) Urine pH (5.0-8.0) Ur Specific Diana (1.005-1.030) Urine Protein (Negative) Urine Glucose (UA) (Negative) Urine Ketones (Negative) Urine Occult Blood (Negative) Urine Nitrite (Negative) Urine Bilirubin (Negative) Urine Urobilinogen (0.2-1.0) Ur Leukocyte Esterase (Negative) Urine RBC (0-5) /hpf Urine WBC (0-5) /hpf Ur Squamous Epith Cells (0-5) /hpf Urine Bacteria (FEW) /hpf Urine Mucus (FEW) /hpf Ethyl Alcohol Med Orders - Current: Current Medications Amlodipine Besylate (Norvasc) 10 mg PO DAILY [facility] Cephalexin (Keflex) 500 mg PO QID [facility] Last Admin: 02/20/19 21:52 Dose: 500 mg Folic Acid (Folic Acid) 1 mg PO DAILY [facility] Gabapentin (Neurontin) 600 mg PO TID [facility] Last Admin: 02/20/19 21:52 Dose: 600 mg Hydromorphone HCl (Dilaudid) 0.5 mg IVPUSH Q1H PRN PRN Reason: Pain Last Admin: 02/20/19 17:25 Dose: 0.5 mg Sodium Chloride (Normal Saline) 1,000 mls @ 150 mls/hr IV ASDIRECTED [facility] Last Admin: 02/20/19 22:21 Dose: 150 mls/hr Insulin Human Lispro (Humalog) 0 unit SUBCUT QIDACANDBED [facility]; Protocol Last Admin: 02/20/19 21:57 Dose: 4 units Non-Formulary Medication (Fenofibrate Nanocrystallized [Fenofibrate]) 48 mg PO DAILY [facility] Ondansetron HCl (Zofran) 4 mg IVPUSH Q4H PRN PRN Reason: Nausea Last Admin: 02/20/19 17:25 Dose: 4 mg Prednisone (Prednisone) 30 mg PO DAILY [facility] Simvastatin (Zocor) 5 mg PO DAILY [facility] Sodium Chloride (Saline Flush) 10 ml FLUSH ASDIRECTED PRN PRN Reason: Keep Vein Open Last Admin: 02/20/19 08:05 Dose: 10 ml Discontinued Medications Hydromorphone HCl (Dilaudid) 0.5 mg IVPUSH ONETIME ONE Stop: 02/20/19 08:20 Last Admin: 02/20/19 08:42 Dose: 0.5 mg Potassium Chloride 10 meq/ (Premix) 100 mls @ 100 mls/hr IV ONETIME ONE Stop: 02/20/19 11:15 Last Admin: 02/20/19 10:33 Dose: 100 mls/hr Sodium Chloride (Normal Saline) 500 mls @ 1,000 mls/hr IV .BOLUS ONE Stop: 02/20/19 10:51 Last Admin: 02/20/19 10:31 Dose: 1,000 mls/hr Potassium Chloride 10 meq/ (Premix) 100 mls @ 100 mls/hr IV Q1H SILVINO Stop: 02/20/19 16:29 Last Admin: 02/20/19 16:09 Dose: 100 mls/hr Lactated Ringer's (Ringers, Lactated) 1,000 mls @ 250 mls/hr IV .BOLUS ONE Stop: 02/20/19 16:25 Last Admin: 02/20/19 13:55 Dose: 250 mls/hr Lactated Ringer's (Ringers, Lactated) 1,000 mls @ 250 mls/hr IV ASDIRECTED [facility] Last Admin: 02/20/19 18:30 Dose: 250 mls/hr Magnesium Sulfate 4 gm/ Premix 50 mls @ 12.5 mls/hr IV ONETIME ONE Stop: 02/20/19 17:59 Last Admin: 02/20/19 13:55 Dose: 12.5 mls/hr Influenza Virus Vaccine (Pharmacy To Dose - Influenza Vaccine) 1 each IM ONETIME ONE Stop: 02/20/19 12:22 Influenza Virus Vaccine (Fluzone Quad [id number] Syringe) 60 mcg IM .ONCE ONE Stop: 02/20/19 12:31 Insulin Human Lispro (Humalog) 10 unit SUBCUT ONETIME ONE Stop: 02/20/19 14:00 Last Admin: 02/20/19 14:20 Dose: Not Given Insulin Human Lispro (Humalog) 4 unit SUBCUT ONETIME ONE Stop: 02/20/19 23:31 Insulin Human Regular (Humulin R) 10 unit SUBCUT ONETIME ONE Stop: 02/20/19 13:48 Ondansetron HCl (Zofran) 4 mg IVPUSH ONETIME ONE Stop: 02/20/19 08:19 Last Admin: 02/20/19 08:40 Dose: 4 mg Pneumococcal Polyvalent Vaccine (Pneumovax 23) 0.5 ml IM .ONCE ONE Stop: 02/20/19 12:22 - Exam Quality Assessment: Reports: Supplemental Oxygen General: Reports: Lethargic Lungs: Reports: Clear to Auscultation, Normal Respiratory Effort Cardiovascular: Reports: Regular Rate, Regular Rhythm GI/Abdominal Exam: No Distention, Tender (Mildly tender in the right upper quadrant). No: Normal Bowel Sounds (Decreased)
[2019-02-21] MEDS ORDERED: predniSONE 10 MG Tab PO SCH (09:00)
[2019-02-21] MEDS ORDERED: Folic Acid 1 MG Tab PO SCH (09:00)
[2019-02-21] MEDS ORDERED: Non-Formulary Medication 1 Each (Fenofibrate Nanocrystallized [Fenofibrate] 48 MG) PO SCH (09:00)
[2019-02-21] MEDS ORDERED: Simvastatin 10 MG Tab PO SCH (09:00)
[2019-02-21] MEDS ORDERED: amLODIPine 5 MG Tab PO SCH (09:00)
== END 2019-02-21 01:20 | DRG 439 ==
LOC: JD.ED 07:45 → JD.ICU 11:00
PROVIDERS: ADMIT Family Medicine; ATTEND Family Medicine
DX: K85.30 Drug induced acute pancreatitis without necrosis or infection (principal); K85.80 Other acute pancreatitis without necrosis or infection; E87.1 Hypo-osmolality and hyponatremia; M33.20 Polymyositis, organ involvement unspecified; R53.1 Weakness; R10.13 Epigastric pain; R10.11 Right upper quadrant pain; R11.0 Nausea; T49.0X5A Adverse effect of local antifungal, anti-infective and anti-inflammatory drugs, initial encounter; E78.1 Pure hyperglyceridemia; K86.1 Other chronic pancreatitis; K82.4 Cholesterolosis of gallbladder; E11.9 Type 2 diabetes mellitus without complications; E87.6 Hypokalemia; E83.42 Hypomagnesemia; L03.012 Cellulitis of left finger; B35.1 Tinea unguium; E78.00 Pure hypercholesterolemia, unspecified; I10 Essential (primary) hypertension; Z79.52 Long term (current) use of systemic steroids; Z79.899 Other long term (current) drug therapy; Z98.49 Cataract extraction status, unspecified eye; Z87.440 Personal history of urinary (tract) infections; Z90.710 Acquired absence of both cervix and uterus; Z79.4 Long term (current) use of insulin
CPT/HCPCS: 36415; 71045; 76705; 80053; 82962; 83690; 84484; 85025; 93005; 96365; 96375; 99285; J1170; J2405; J3480; J7040; 80061; 81001; 83735; 93010; 99284; A9270-GY; J1815-GY; J3475; J7120